=== PATIENT | female | born 1930 | race Caucasian/White ===

== ENCOUNTER 2016-10-23 08:01 | Day surgery (SDC) | payer MEDICARE ==
[~2016-10-23 08:01] MED LIST: Bupivacaine 0.5% 50 ML MDV ONE; Lidocaine 1% with EPINEPHrine 1:100,000 50 ML MDV ONE
[2016-10-23] MEDS ORDERED: Dextrose 5%-Lactated Ringers 1,000 ML IV SCH (08:30)
[2016-10-23] MEDS ORDERED: Clindamycin Phosphate 900 MG in Sodium Chloride 0.9% 100 ML IV ONE (08:30)
[2016-10-23] MEDS ORDERED: Propofol 200 MG/20 ML SDV ONE (09:46)
[2016-10-23] MEDS ORDERED: fentaNYL 100 MCG/2 ML SDV ONE (09:46)
[2016-10-23] MEDS ORDERED: Midazolam 1 MG/ML 2 ML SDV ONE (10:22)
[2016-10-23] MEDS ORDERED: Linezolid 200 MG/100 ML Bag IRR ONE (11:27)
[2016-10-23 13:14] VITALS: BP 157/84
--- NOTE | 2016-10-29 10:21 | OR ---
DATE OF PROCEDURE: 10/23/2016 PREOPERATIVE DIAGNOSES: 1. Dual-chamber cardiac pacemaker, pulse generator at end of life. 2. Nearly eroded cardiac pacemaker pulse generator. OPERATIVE PROCEDURE: 1. Replacement of dual-chamber cardiac pacemaker pulse generator (22556). 2. Relocation of pulse generator pocket to minimize chances of erosion of the pulse generator to the skin (21093). ANESTHESIA: Local plus IV sedation. INDICATION FOR PROCEDURE: This is an 86-year-old presenting with a dual-chamber pacemaker, currently at end of life. The plan is to proceed with placement of pulse generator. On preoperative examination, she was noted to have extremely thin layer of tissue over the superior aspect of the pulse generator. Essentially, at this point, only the skin and dermis and the capsule. This also had some muscle pressure and this would certainly be a pulse generator had some risk for eroding through the skin. The plan is for the replacement of the pulse generator as well as relocation of the pocket into a deeper plane. Potential risks of the procedure were reviewed with the patient as well as the granddaughter who was present, and they wished to proceed. DETAILS OF PROCEDURE: The patient was taken to the operating room and placed in a supine position. IV sedation was administered after which the upper chest and neck areas were prepped and draped. The area over the pulse generator was then anesthetized with 1% lidocaine mixed with Marcaine. An incision continued down through the skin subcutaneous tissue and into the capsule of the pulse generator. The pulse generator was then mobilized upward and detached. The patient had a slow and a walker river rhythm, both leads were tested and found to be satisfactory with the stimulation thresholds as per the implantation record. The pulse generator which was model number [id number] was then placed and adequate pacing and sensing functions were noted. At this point, the incision at the pre-existing capsule was made and this was carried down through the skin and subcutaneous tissue, into a plane behind the pectoralis major fascia using blunt dissection. The new pocket was fashioned into that area and the pulse generator was then placed into that area without difficulty. A Tyrx antibiotic pocket was placed into the pocket as well and the area also irrigated with Zyvox-containing saline solution. The incision was then closed with layers of 3-0 and 4-0 Vicryl stitch deep and a 4-0 Vicryl subcuticular stitch. Dressing was applied. The patient was taken to the recovery room in satisfactory condition. Brody Reynoso MD /[id number]
== END 2016-10-23 13:10 ==
LOC: JP.SDS 08:01
PROVIDERS: ATTEND Surgery
DX: Z45.010 Encounter for checking and testing of cardiac pacemaker pulse generator [battery] (principal); Z45.018 Encounter for adjustment and management of other part of cardiac pacemaker
CPT/HCPCS: 33222; 33228; C1785; J2020; J2250; J2704; J3010; J7030; J7042; S0077

== ENCOUNTER 2017-12-08 10:23 | Observation (INO) | payer MEDICARE ==
[2017-12-08] MEDS ORDERED: Lactated Ringers 1,000 ML IV SCH (10:45)
--- NOTE | 2017-12-08 10:47 | EDM.PDOC ---
ED HPI GENERAL MEDICAL PROBLEM - General Chief Complaint: Neuro Symptoms/Deficits Stated Complaint: MEDICAL VIA [facility] Time Seen by Provider: 12/08/17 10:40 Source of Information: Reports: Patient, EMS, Family, RN Notes Reviewed History Limitations: Reports: Altered Mental Status - History of Present Illness INITIAL COMMENTS - FREE TEXT/NARRATIVE: 87-year-old female brought in by EMS services for unresponsive event. Has a known history of frequent urinary tract infections was reported well at the assisted living center proximally 8:30 this morning, return to her room take a nap midmorning, was found to be unresponsive. Family members are present states she does have a history of self cathetering as well as recurrent urinary tract infections has had sepsis issues in the past with confusion. She has a GCS of 3 so no history is obtained for her she does have advanced directives and is a DNR /DNI. EKG provided by EMS shows multiple PVCs difficult to interpret does have a known history of pacemaker - Related Data Allergies Allergy/AdvReac Type Severity Reaction Status Date / Time TRU Inhibitors Allergy Unknown unknown Verified 10/23/16 08:21 Penicillins Allergy Rash Verified 10/23/16 08:21 esomeprazole AdvReac Diarrhea Verified 10/23/16 08:21 Home Meds: Home Meds Aspirin [Krys Chewable Aspirin] 325 mg PO DAILY 06/17/13 [History] Calcium Carbonate/Vitamin D3 [Calcium 600 + Vit D Tablet] 1 each PO BID [History] Metoprolol Succinate [Toprol XL] 25 mg PO DAILY 06/17/13 [History] PARoxetine [Paxil] 40 mg PO DAILY 06/17/13 [History] traMADol HCl [Tramadol HCl] 50 mg PO TID PRN 03/08/14 [History] Ketoconazole [Nizoral 2% Crm] 1 applic TOP BID 12/23/14 [History] Melatonin 3 mg PO BEDTIME 12/23/14 [History] Omeprazole [Prilosec] 40 mg PO DAILY 12/23/14 [History] Loperamide [Imodium] 2 mg PO DAILY 03/10/16 [History] Meclizine [Antivert] 12.5 mg PO ASDIRECTED PRN 03/10/16 [History] Naproxen Sodium [Aleve] 220 mg PO BID PRN 03/10/16 [History] Ondansetron [Take Home: Ondansetron ODT 4 MG, 2 Tab Pack] 4 mg PO ASDIRECTED PRN 03/16/16 [History] traMADol [Take Home: traMADol 50 MG, 4 Tab Pack] 50 mg PO ASDIRECTED PRN [History] Acetaminophen 325 mg PO ASDIRECTED PRN 10/23/16 [History] Calcium Carbonate [Tums] 200 mg PO Q4H PRN 10/23/16 [History] Glycerin [Laxative Suppository] 1 each RC ASDIRECTED PRN 10/23/16 [History] Hydrocortisone [Hydrocortisone 1% Oint] 1 applic TOP ASDIRECTED PRN 10/23/16 [ History] Magnesium Hydroxide [Milk of Magnesia] 30 ml PO DAILY PRN 10/23/16 [History] Neomycin Mares/Bacitrac Zn/Poly [Medi-First Triple Antibiotic] 1 applic TP ASDIRECTED PRN 10/23/16 [History] guaiFENesin [Robitussin] 10 ml PO Q6H 10/23/16 [History] hydrALAZINE HCl [Hydralazine HCl] 12.5 mg PO DAILY 10/23/16 [History] Past Medical History HEENT History: Reports: Hard of Hearing, Impaired Vision Cardiovascular History: Reports: Afib, Congenital Septal Defect, Heart Failure, Hypertension, Other (See Below) Other Cardiovascular History: pacemaker Gastrointestinal History: Reports: Chronic Constipation, GERD Genitourinary History: Reports: Urinary Incontinence 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: , Spontaneous Musculoskeletal History: Reports: Arthritis, Other (See Below) Other Musculoskeletal History: osteopenia Neurological History: Reports: Headaches, Chronic Psychiatric History: Reports: Depression Hematologic History: Reports: Blood Transfusion(s) Dermatologic History: Reports: Other (See Below) Other Dermatologic History: rash on back - Infectious Disease History Infectious Disease History: Reports: Chicken Pox - Past Surgical History Cardiovascular Surgical History: Reports: Other (See Below) GI Surgical History: Reports: Appendectomy, Cholecystectomy, Colonoscopy, EGD, Nora Fundoplication Female Surgical History: Reports: Hysterectomy, LEEP, Salpingo-Oophorectomy Musculoskeletal Surgical History: Reports: Knee Replacement Social & Family History - Family History Family Medical History: Noncontributory - Tobacco Use Smoking Status *Q: Never Smoker Second Hand Smoke Exposure: No - Caffeine Use Caffeine Use: Reports: Soda - Alcohol Use Days Per Week of Alcohol Use: 0 - Recreational Drug Use Recreational Drug Use: No ED ROS GENERAL - Review of Systems Review Of Systems: Unable To Obtain ED EXAM, GENERAL - Physical Exam Exam: See Below Free Text/Narrative:: General: Elderly female obtunded GCS of 3, HEENT: head is atraumatic normocephalic, eyes pupils equal round reactive to light, sclera clear no conjunctivitis appreciated does have eye fluttering movement. Ears tympanic membranes clear and carranza landmarks and light reflex are present bilaterally canals are clear. Nose no septal deviation, nares are clear, no blood present. Mouth mucosa is dry and pink no erythema or exudate noted in soft palate, tongue is midline uvula is midline, dentures in place. Neck: Supple no thyromegaly no tracheal deviation. Nodes: Cervical nodes subclavicular nodes nontender no palpable lymphadenopathy noted. Lungs: Decreased breath sounds CV: Irregularly irregular rate and rhythm S1 and S2 appreciated grade 2/6 systolic ejection murmur best appreciated at the left sternal border, no rubs or gallops noted. Abdomen: Soft, nontender, no palpable masses or organomegaly appreciated, no distention no guarding bowel sounds are present, . Neuro: GCS of 3 Skin: Warm and dry, intact Extremities: No lower extremity edema appreciated, Course - Vital Signs Last Recorded V/S: Last Vital Signs Temp 97.7 F 12/08/17 10:40 Pulse 71 12/08/17 13:36 Resp 16 12/08/17 13:36 BP 117/65 12/08/17 13:36 Pulse Ox 97 12/08/17 13:36 - Orders/Labs/Meds Orders: Active Orders 24 hr Category Date Time Status Vital Signs [RC] Q1H Care 12/08/17 10:40 Active CULTURE BLOOD [BC] Urgent Lab 12/08/17 10:50 Received CULTURE BLOOD [BC] Urgent Lab 12/08/17 11:00 Received DRUG SCREEN, URINE [URCHEM] Stat Lab 12/08/17 13:22 Ordered UA W/MICROSCOPIC [URIN] Urgent Lab 12/08/17 12:17 Ordered Lactated Ringers [Ringers, Lactated] 1,000 ml Med 12/08/17 10:45 Active IV ASDIRECTED Blood Culture x2 Reflex Set [OM.PC] Urgent Oth 12/08/17 10:40 Ordered Medication Orders Lactated Ringer's (Ringers, Lactated) 1,000 mls @ 500 mls/hr IV ASDIRECTED SELWYN Last Admin: 12/08/17 11:33 Dose: 500 mls/hr Labs: Laboratory Tests 12/08/17 12/08/17 12/08/17 Range/Units 10:50 10:50 10:50 WBC 4.8 (4.5-11.0) K/uL RBC 4.46 (3.30-5.50) M/uL Hgb 12.5 (12.0-15.0) g/dL Hct 39.0 (36.0-48.0) % MCV 87 (80-98) fL MCH 28 (27-31) pg MCHC 32 (32-36) % Plt Count 120 L (150-400) K/uL Neut % (Auto) 65 (36-66) % Lymph % (Auto) 20 L (24-44) % [place] % (Auto) 10 H (2-6) % Eos % (Auto) 3 (2-4) % Baso % (Auto) 1 (0-1) % Sodium 143 (140-148) mmol/L Potassium 3.5 L (3.6-5.2) mmol/L Chloride 104 (100-108) mmol/L Carbon Dioxide 30 (21-32) mmol/L Anion Gap 12.5 (5.0-14.0) mmol/L BUN 19 H (7-18) mg/dL Creatinine 1.3 H (0.6-1.0) mg/dL Est Cr Clr Drug Dosing 23.44 mL/min Estimated GFR (MDRD) 39 L (>60) Glucose 94 (74-106) mg/dL Lactic Acid 1.4 (0.4-2.0) mmol/L Calcium 8.3 L (8.5-10.1) mg/dL Total Bilirubin 1.3 H D (0.2-1.0) mg/dL AST 38 H (15-37) U/L ALT 16 (12-78) U/L Alkaline Phosphatase 84 (46-116) U/L Troponin I (0.000-0.056) ng/mL C-Reactive Protein 1.98 H (0.0-0.3) mg/dL Total Protein 7.2 (6.4-8.2) g/dL Albumin 3.0 L (3.4-5.0) g/dL Globulin 4.2 H (2.3-3.5) g/dL Albumin/Globulin Ratio 0.7 L (1.2-2.2) Urine Color Urine Appearance Urine pH (4.5-8.0) Ur Specific [place] (1.008-1.030) Urine Protein (NEGATIVE) mg/dL Urine Glucose (UA) (NEGATIVE) mg/dL Urine Ketones (NEGATIVE) mg/dL Urine Occult Blood (NEGATIVE) Urine Nitrite (NEGATIVE) Urine Bilirubin (NEGATIVE) Urine Urobilinogen (NORMAL) mg/dL Ur Leukocyte Esterase (NEGATIVE) Urine RBC (0-5) Urine WBC (0-5) Ur Epithelial Cells Amorphous Sediment Urine Bacteria Urine Mucus Urinalysis Comment Urine Opiates Screen (NEGATIVE) Ur Oxycodone Screen (NEGATIVE) Urine Methadone Screen (NEGATIVE) Ur Propoxyphene Screen (NEGATIVE) Ur Barbiturates Screen (NEGATIVE) Ur Tricyclics Screen (NEGATIVE) Ur Phencyclidine Scrn (NEGATIVE) Ur Amphetamine Screen (NEGATIVE) U Methamphetamines Scrn (NEGATIVE) Urine MDMA Screen (NEGATIVE) U Benzodiazepines Scrn (NEGATIVE) U Cocaine Metab Screen (NEGATIVE) U Marijuana (THC) Screen (NEGATIVE) 12/08/17 12/08/17 12/08/17 Range/Units 11:02 12:17 13:22 WBC (4.5-11.0) K/uL RBC (3.30-5.50) M/uL Hgb (12.0-15.0) g/dL Hct (36.0-48.0) % MCV (80-98) fL MCH (27-31) pg MCHC (32-36) % Plt Count (150-400) K/uL Neut % (Auto) (36-66) % Lymph % (Auto) (24-44) % [place] % (Auto) (2-6) % Eos % (Auto) (2-4) % Baso % (Auto) (0-1) % Sodium (140-148) mmol/L Potassium (3.6-5.2) mmol/L Chloride (100-108) mmol/L Carbon Dioxide (21-32) mmol/L Anion Gap (5.0-14.0) mmol/L BUN (7-18) mg/dL Creatinine (0.6-1.0) mg/dL Est Cr Clr Drug Dosing mL/min Estimated GFR (MDRD) (>60) Glucose (74-106) mg/dL Lactic Acid (0.4-2.0) mmol/L Calcium (8.5-10.1) mg/dL Total Bilirubin (0.2-1.0) mg/dL AST (15-37) U/L ALT (12-78) U/L Alkaline Phosphatase (46-116) U/L Troponin I < 0.017 (0.000-0.056) ng/mL C-Reactive Protein (0.0-0.3) mg/dL Total Protein (6.4-8.2) g/dL Albumin (3.4-5.0) g/dL Globulin (2.3-3.5) g/dL Albumin/Globulin Ratio (1.2-2.2) Urine Color Yellow Urine Appearance Slightly cloudy Urine pH 7.0 (4.5-8.0) Ur Specific [place] 1.010 (1.008-1.030) Urine Protein Negative (NEGATIVE) mg/dL Urine Glucose (UA) Normal (NEGATIVE) mg/dL Urine Ketones Negative (NEGATIVE) mg/dL Urine Occult Blood Negative (NEGATIVE) Urine Nitrite Negative (NEGATIVE) Urine Bilirubin Negative (NEGATIVE) Urine Urobilinogen 4 (NORMAL) mg/dL Ur Leukocyte Esterase Negative (NEGATIVE) Urine RBC 0-5 (0-5) Urine WBC 0-5 (0-5) Ur Epithelial Cells Few Amorphous Sediment Not seen Urine Bacteria Many Urine Mucus Not seen Urinalysis Comment Urine Opiates Screen Negative (NEGATIVE) Ur Oxycodone Screen Negative (NEGATIVE) Urine Methadone Screen Negative (NEGATIVE) Ur Propoxyphene Screen Negative (NEGATIVE) Ur Barbiturates Screen Negative (NEGATIVE) Ur Tricyclics Screen Negative (NEGATIVE) Ur Phencyclidine Scrn Negative (NEGATIVE) Ur Amphetamine Screen Negative (NEGATIVE) U Methamphetamines Scrn Negative (NEGATIVE) Urine MDMA Screen Negative (NEGATIVE) U Benzodiazepines Scrn Negative (NEGATIVE) U Cocaine Metab Screen Negative (NEGATIVE) U Marijuana (THC) Screen Negative (NEGATIVE) Meds: Medications Generic Name Dose Route Start Last Admin Trade Name Freq PRN Reason Stop Dose Admin Lactated Ringer's 1,000 mls @ 500 mls/hr 04/18/18 10:45 12/08/17 11:33 Ringers, Lactated IV 500 mls/hr ASDIRECTED SELWYN Administration Discontinued Medications Generic Name Dose Route Start Last Admin Trade Name Tato PRN Reason Stop Dose Admin Ceftriaxone Sodium 2 gm/ 50 mls @ 100 mls/hr 12/08/17 11:36 12/08/17 11:48 Sodium Chloride IV 12/08/17 12:05 100 mls/hr ONETIME ONE Administration Departure - Departure Time of Disposition: 14:58 Disposition: Admitted As Inpatient 67 Condition: Fair Clinical Impression: Unresponsive episode - Discharge Information Referrals: Jeet Jordan MD [Primary Care Provider] - Forms: ED Department Discharge - My Orders Last 24 Hours: My Active Orders 12/08/17 10:40 Vital Signs [RC] Q1H Blood Culture x2 Reflex Set [OM.PC] Urgent 12/08/17 10:45 Lactated Ringers [Ringers, Lactated] 1,000 ml IV ASDIRECTED 12/08/17 10:50 CULTURE BLOOD [BC] Urgent 12/08/17 11:00 CULTURE BLOOD [BC] Urgent 12/08/17 12:17 UA W/MICROSCOPIC [URIN] Urgent 12/08/17 13:22 DRUG SCREEN, URINE [URCHEM] Stat - Assessment/Plan Last 24 Hours: My Active Orders 12/08/17 10:40 Vital Signs [RC] Q1H Blood Culture x2 Reflex Set [OM.PC] Urgent 12/08/17 10:45 Lactated Ringers [Ringers, Lactated] 1,000 ml IV ASDIRECTED 12/08/17 10:50 CULTURE BLOOD [BC] Urgent 12/08/17 11:00 CULTURE BLOOD [BC] Urgent 12/08/17 12:17 UA W/MICROSCOPIC [URIN] Urgent 12/08/17 13:22 DRUG SCREEN, URINE [URCHEM] Stat Plan: Assessment Acuity = acute Site and laterality = brief moment of unconsciousness complicated patient with known history of chronic white matter disease Etiology = unclear etiology Manifestations = none Location of injury = Home Lab values = CBC unremarkable, creatinine elevated at 1.3 consistent chronic renal failure stage G IIIB total bilirubin elevated 1.3 consistent with hyperbilirubinemia C-reactive protein elevated 1.98 unclear significance urinalysis negative urine drug screens negative chest x-ray shows cardiomegaly CT scan of the head shows chronic white matter change otherwise no acute process does have an 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
--- NOTE | 2017-12-08 11:26 | CR ---
Chest 1V Frontal HISTORY: Unresponsive COMPARISON: CT chest 2013. FINDINGS: Prior median sternotomy. Rotated film. Moderate cardiomegaly. There appears to be mild inte rstitial prominence in the right perihilar region which could represent pulmonary edema and/or inflam matory change. Right-sided effusion with right lung base atelectasis or infiltrate. Small left-sided effusion. Impression: 1. Cardiomegaly. I cannot exclude mild congestive change. 2. Right lung base effusion with adjacent atelectasis or infiltrate.
[2017-12-08] MEDS ORDERED: cefTRIAXone 2 GM in Sodium Chloride 0.9% 50 ML IV ONE (11:36)
--- NOTE | 2017-12-08 14:31 | CT ---
Head wo Cont HISTORY: Obtunded COMPARISON: Prior CT scan 03/10/2016. FINDINGS: Extensive atrophy and chronic white matter changes. Old lacunar infarcts in the head of the right caudate lobe measuring 6 to 7 mm. No acute hemorrhage, mass or mass effect. No abnormal extra- axial fluid collections. There is dense opacification of left sphenoid sinus which is new from prior study mild left mastoid and right mastoid air cell disease which also appears to be new from prior st udy. Impression: 1. Extensive atrophy and chronic white matter change. No acute changes in the brain. 2. New left sphenoid sinus disease and bilateral mastoid air cell disease.
--- NOTE | 2017-12-08 16:04 | PCM.HP ---
H&P History of Present Illness - General Date of Service: 12/08/17 Admit Problem/Dx: Admission Diagnosis/Problem Admission Diagnosis/Problem Decreased level of consciousness Source of Information: Patient, Family, Provider, RN Notes Reviewed History Limitations: Reports: Altered Mental Status (Dementia) - History of Present Illness Initial Comments - Free Text/Narative: Ms. Crane is an 87-year-old woman who is admitted through the emergency department observation status for further evaluation and management of an unresponsive episode. Ms. Crane has a known diagnosis of Alzheimer's type dementia and is unable to provide a meaningful history concerning recent symptoms or events. She lives in an assisted living facility, report is that she woke up early this morning to use the bathroom and then went back to bed. Staff went in to get her up for the day and she was found to be unresponsive even to painful stimuli. She was brought into the emergency department by EMS for further evaluation. Vital signs were found to be stable and she had adequate oxygenation. CT scan of the head shows age-related changes but no acute abnormalities. Other than probable sinusitis identified on CT scan there is no other obvious source of infection and no significant metabolic abnormalities. There are no new recent medications and her urine drug screen was found to be negative. After short period of time in the emergency department she awoke and family feels that her current cognitive function seems to be fairly normal for her. There are no focal neurologic deficits and she has had no similar episodes in the past. There is no history of seizure disorder. - Related Data Allergies/Adverse Reactions: Allergies Allergy/AdvReac Type Severity Reaction Status Date / Time TRU Inhibitors Allergy Unknown unknown Verified 10/23/16 08:21 Penicillins Allergy Rash Verified 10/23/16 08:21 esomeprazole AdvReac Diarrhea Verified 10/23/16 08:21 Home Medications: Home Meds Aspirin [Krys Chewable Aspirin] 325 mg PO DAILY 06/17/13 [History] Calcium Carbonate/Vitamin D3 [Calcium 600 + Vit D Tablet] 1 each PO BID [History] Metoprolol Succinate [Toprol XL] 25 mg PO DAILY 06/17/13 [History] PARoxetine [Paxil] 40 mg PO DAILY 06/17/13 [History] traMADol HCl [Tramadol HCl] 50 mg PO TID PRN 03/08/14 [History] Ketoconazole [Nizoral 2% Crm] 1 applic TOP BID 12/23/14 [History] Melatonin 3 mg PO BEDTIME 12/23/14 [History] Omeprazole [Prilosec] 40 mg PO DAILY 12/23/14 [History] Loperamide [Imodium] 2 mg PO DAILY 03/10/16 [History] Meclizine [Antivert] 12.5 mg PO ASDIRECTED PRN 03/10/16 [History] Naproxen Sodium [Aleve] 220 mg PO BID PRN 03/10/16 [History] Ondansetron [Take Home: Ondansetron ODT 4 MG, 2 Tab Pack] 4 mg PO ASDIRECTED PRN 03/16/16 [History] traMADol [Take Home: traMADol 50 MG, 4 Tab Pack] 50 mg PO ASDIRECTED PRN [History] Acetaminophen 325 mg PO ASDIRECTED PRN 10/23/16 [History] Calcium Carbonate [Tums] 200 mg PO Q4H PRN 10/23/16 [History] Glycerin [Laxative Suppository] 1 each RC ASDIRECTED PRN 10/23/16 [History] Hydrocortisone [Hydrocortisone 1% Oint] 1 applic TOP ASDIRECTED PRN 10/23/16 [ History] Magnesium Hydroxide [Milk of Magnesia] 30 ml PO DAILY PRN 10/23/16 [History] Neomycin Mares/Bacitrac Zn/Poly [Medi-First Triple Antibiotic] 1 applic TP ASDIRECTED PRN 10/23/16 [History] guaiFENesin [Robitussin] 10 ml PO Q6H 10/23/16 [History] hydrALAZINE HCl [Hydralazine HCl] 12.5 mg PO DAILY 10/23/16 [History] Past Medical History HEENT History: Reports: Hard of Hearing, Impaired Vision Cardiovascular History: Reports: Afib, Congenital Septal Defect, Heart Failure, Hypertension, Other (See Below) Other Cardiovascular History: pacemaker Gastrointestinal History: Reports: Chronic Constipation, GERD Genitourinary History: Reports: Urinary Incontinence [employer] History: Reports: , Spontaneous Musculoskeletal History: Reports: Arthritis, Other (See Below) Other Musculoskeletal History: osteopenia Neurological History: Reports: Headaches, Chronic Psychiatric History: Reports: Depression Hematologic History: Reports: Blood Transfusion(s) Dermatologic History: Reports: Other (See Below) Other Dermatologic History: rash on back - Infectious Disease History Infectious Disease History: Reports: Chicken Pox - Past Surgical History Cardiovascular Surgical History: Reports: Other (See Below) GI Surgical History: Reports: Appendectomy, Cholecystectomy, Colonoscopy, EGD, Nora Fundoplication Female Surgical History: Reports: Hysterectomy, LEEP, Salpingo-Oophorectomy Musculoskeletal Surgical History: Reports: Knee Replacement Social & Family History - Family History Family Medical History: Noncontributory - Tobacco Use Smoking Status *Q: Never Smoker Second Hand Smoke Exposure: No - Caffeine Use Caffeine Use: Reports: Soda - Alcohol Use Days Per Week of Alcohol Use: 0 - Recreational Drug Use Recreational Drug Use: No H&P Review of Systems - Review of Systems: Review Of Systems: Unable To Obtain General: Reports: ROS unobtainable (Secondary to dementia) Exam - Exam Exam: See Below - Vital Signs Vital Signs: Last Vital Signs Temp 97.7 F 12/08/17 10:40 Pulse 69 12/08/17 15:36 Resp 14 12/08/17 15:36 BP 102/68 12/08/17 15:36 Pulse Ox 95 12/08/17 15:36 Weight: 150 lb - Exam Quality Assessment: Supplemental Oxygen, DVT Prophylaxis General: Alert, Cooperative HEENT: Conjunctiva Clear, Hearing Intact, Mucosa Moist & Mamou, Normal Nasal Septum, Posterior Pharynx Clear, Pupils Equal Neck: Supple, Trachea Midline, +2 Carotid Pulse wo Bruit Lungs: Clear to Auscultation, Normal Respiratory Effort, Decreased Breath Sounds Cardiovascular: Regular Rate, Regular Rhythm, Normal S1, Normal S2. No: Systolic Murmur, Diastolic Murmur GI/Abdominal Exam: Soft, Non-Tender, No Organomegaly, No Distention Back Exam: Normal Inspection, Full Range of Motion Extremities: Normal Range of Motion, Non-Tender, No Pedal Edema Skin: Warm, Dry, Intact Neurological: Cranial Nerves Intact, Strength Equal Bilateral, Normal Speech, Normal Tone, Sensation Intact Neuro Extensive - Mental Status: Alert, Normal Mood/Affect, Disorientation to Place, Disorientation to Time, Memory Loss-Remote Events, Memory Loss-Recent Events. No: Normal Cognition, Memory Intact - Patient Data Lab Results Last 24 hrs: Laboratory Results - last 24 hr 12/08/17 12/08/17 12/08/17 Range/Units 10:50 10:50 10:50 WBC 4.8 (4.5-11.0) K/uL RBC 4.46 (3.30-5.50) M/uL Hgb 12.5 (12.0-15.0) g/dL Hct 39.0 (36.0-48.0) % MCV 87 (80-98) fL MCH 28 (27-31) pg MCHC 32 (32-36) % Plt Count 120 L (150-400) K/uL Neut % (Auto) 65 (36-66) % Lymph % (Auto) 20 L (24-44) % Sherman % (Auto) 10 H (2-6) % Eos % (Auto) 3 (2-4) % Baso % (Auto) 1 (0-1) % Sodium 143 (140-148) mmol/L Potassium 3.5 L (3.6-5.2) mmol/L Chloride 104 (100-108) mmol/L Carbon Dioxide 30 (21-32) mmol/L Anion Gap 12.5 (5.0-14.0) mmol/L BUN 19 H (7-18) mg/dL Creatinine 1.3 H (0.6-1.0) mg/dL Est Cr Clr Drug Dosing 23.44 mL/min Estimated GFR (MDRD) 39 L (>60) Glucose 94 (74-106) mg/dL Lactic Acid 1.4 (0.4-2.0) mmol/L Calcium 8.3 L (8.5-10.1) mg/dL Total Bilirubin 1.3 H D (0.2-1.0) mg/dL AST 38 H (15-37) U/L ALT 16 (12-78) U/L Alkaline Phosphatase 84 (46-116) U/L Troponin I (0.000-0.056) ng/mL C-Reactive Protein 1.98 H (0.0-0.3) mg/dL Total Protein 7.2 (6.4-8.2) g/dL Albumin 3.0 L (3.4-5.0) g/dL Globulin 4.2 H (2.3-3.5) g/dL Albumin/Globulin Ratio 0.7 L (1.2-2.2) Urine Color Urine Appearance Urine pH (4.5-8.0) Ur Specific [place] (1.008-1.030) Urine Protein (NEGATIVE) mg/dL Urine Glucose (UA) (NEGATIVE) mg/dL Urine Ketones (NEGATIVE) mg/dL Urine Occult Blood (NEGATIVE) Urine Nitrite (NEGATIVE) Urine Bilirubin (NEGATIVE) Urine Urobilinogen (NORMAL) mg/dL Ur Leukocyte Esterase (NEGATIVE) Urine RBC (0-5) Urine WBC (0-5) Ur Epithelial Cells Amorphous Sediment Urine Bacteria Urine Mucus Urinalysis Comment Urine Opiates Screen (NEGATIVE) Ur Oxycodone Screen (NEGATIVE) Urine Methadone Screen (NEGATIVE) Ur Propoxyphene Screen (NEGATIVE) Ur Barbiturates Screen (NEGATIVE) Ur Tricyclics Screen (NEGATIVE) Ur Phencyclidine Scrn (NEGATIVE) Ur Amphetamine Screen (NEGATIVE) U Methamphetamines Scrn (NEGATIVE) Urine MDMA Screen (NEGATIVE) U Benzodiazepines Scrn (NEGATIVE) U Cocaine Metab Screen (NEGATIVE) U Marijuana (THC) Screen (NEGATIVE) 12/08/17 12/08/17 12/08/17 Range/Units 11:02 12:17 13:22 WBC (4.5-11.0) K/uL RBC (3.30-5.50) M/uL Hgb (12.0-15.0) g/dL Hct (36.0-48.0) % MCV (80-98) fL MCH (27-31) pg MCHC (32-36) % Plt Count (150-400) K/uL Neut % (Auto) (36-66) % Lymph % (Auto) (24-44) % Sherman % (Auto) (2-6) % Eos % (Auto) (2-4) % Baso % (Auto) (0-1) % Sodium (140-148) mmol/L Potassium (3.6-5.2) mmol/L Chloride (100-108) mmol/L Carbon Dioxide (21-32) mmol/L Anion Gap (5.0-14.0) mmol/L BUN (7-18) mg/dL Creatinine (0.6-1.0) mg/dL Est Cr Clr Drug Dosing mL/min Estimated GFR (MDRD) (>60) Glucose (74-106) mg/dL Lactic Acid (0.4-2.0) mmol/L Calcium (8.5-10.1) mg/dL Total Bilirubin (0.2-1.0) mg/dL AST (15-37) U/L ALT (12-78) U/L Alkaline Phosphatase (46-116) U/L Troponin I < 0.017 (0.000-0.056) ng/mL C-Reactive Protein (0.0-0.3) mg/dL Total Protein (6.4-8.2) g/dL Albumin (3.4-5.0) g/dL Globulin (2.3-3.5) g/dL Albumin/Globulin Ratio (1.2-2.2) Urine Color Yellow Urine Appearance Slightly cloudy Urine pH 7.0 (4.5-8.0) Ur Specific [place] 1.010 (1.008-1.030) Urine Protein Negative (NEGATIVE) mg/dL Urine Glucose (UA) Normal (NEGATIVE) mg/dL Urine Ketones Negative (NEGATIVE) mg/dL Urine Occult Blood Negative (NEGATIVE) Urine Nitrite Negative (NEGATIVE) Urine Bilirubin Negative (NEGATIVE) Urine Urobilinogen 4 (NORMAL) mg/dL Ur Leukocyte Esterase Negative (NEGATIVE) Urine RBC 0-5 (0-5) Urine WBC 0-5 (0-5) Ur Epithelial Cells Few Amorphous Sediment Not seen Urine Bacteria Many Urine Mucus Not seen Urinalysis Comment Urine Opiates Screen Negative (NEGATIVE) Ur Oxycodone Screen Negative (NEGATIVE) Urine Methadone Screen Negative (NEGATIVE) Ur Propoxyphene Screen Negative (NEGATIVE) Ur Barbiturates Screen Negative (NEGATIVE) Ur Tricyclics Screen Negative (NEGATIVE) Ur Phencyclidine Scrn Negative (NEGATIVE) Ur Amphetamine Screen Negative (NEGATIVE) U Methamphetamines Scrn Negative (NEGATIVE) Urine MDMA Screen Negative (NEGATIVE) U Benzodiazepines Scrn Negative (NEGATIVE) U Cocaine Metab Screen Negative (NEGATIVE) U Marijuana (THC) Screen Negative (NEGATIVE) Result Diagrams: 12/08/17 10:50 12/08/17 10:50 *Q Meaningful Use (ADM) - VTE Risk Assess *Q Each Risk Factor Represents 1 Point: Obesity ( BMI > 25 kg/m2), Abnormal Pulmonary Function (COPD) Total Score 1 Point Risk Factors: 2 Each Risk Factor Represents 2 Points: None Total Score 2 Point Risk Factors: 0 Each Risk Factor Represents 3 Points: Age 75 Years or Greater Total Score 3 Point Risk Factors: 3 Each Risk Factor Represents 5 Points: None Total Score 5 Point Risk Factors: 0 Venous Thromboembolism Risk Factor Score *Q: 5 Problem List Initiated/Reviewed/Updated: Yes Orders Last 24hrs: Active Orders 24 hr Category Date Time Status Patient Status Manage Transfer [TRANSFER] Routine ADT 12/08/17 15:10 Active Vital Signs [RC] Q1H Care 12/08/17 10:40 Active CULTURE BLOOD [BC] Urgent Lab 12/08/17 10:50 Received CULTURE BLOOD [BC] Urgent Lab 12/08/17 11:00 Received DRUG SCREEN, URINE [URCHEM] Stat Lab 12/08/17 13:22 Ordered UA W/MICROSCOPIC [URIN] Urgent Lab 12/08/17 12:17 Ordered Lactated Ringers [Ringers, Lactated] 1,000 ml Med 12/08/17 10:45 Active IV ASDIRECTED Blood Culture x2 Reflex Set [OM.PC] Urgent Oth 12/08/17 10:40 Ordered Resuscitation Status Routine Resus Stat 12/08/17 15:13 Ordered Medication Orders Lactated Ringer's (Ringers, Lactated) 1,000 mls @ 500 mls/hr IV ASDIRECTED SELWYN Last Admin: 12/08/17 11:33 Dose: 500 mls/hr Assessment/Plan Comment:: ASSESSMENT AND PLAN UNRESPONSIVE EPISODE-after evaluation, specific etiology not apparent. No obvious evidence of underlying significant infection, metabolic abnormality, drug effect, or neurologic event. She will be admitted to observation status overnight -Cardiac monitoring - neuro checks every 4 hours SINUSITIS-identified on CT scan - clindamycin 300 mg every 6 hours -probiotic CHRONIC KIDNEY DISEASE STAGE III -monitor urine output and renal function PALLIATIVE CARE-patient is DNR/DNI, according to family she does not want aggressive interventions or evaluation MAINTENANCE ISSUES -DVT prophylaxis; Lovenox 40 mg subcutaneous daily -GI prophylaxis; not indicated -Mitchell catheter; not indicated -Nutrition;2 g sodium diet -Nicotine dependence; not required CODE STATUS-DNR/DNI ADMISSION STATUS-this patient will be admitted to observation status, expect no more than a one night hospital stay for evaluation and management of problems as outlined above. DISPOSITION-anticipate discharge to home after the hospital stay. PRIMARY CARE PROVIDER- Dr. Jordan
[2017-12-08] MEDS ORDERED: Polyethylene Glycol 3350 Powder 17 GM Packet PO PRN (16:22)
[2017-12-08] MEDS ORDERED: Ondansetron 4 MG/2 ML SDV IV PRN (16:22)
[2017-12-08] MEDS ORDERED: Acetaminophen 325 MG Tab PO PRN (16:22)
[2017-12-08] MEDS ORDERED: Magnesium Hydroxide 400 MG/5 ML Susp 30 ML Cup PO PRN (16:22)
[2017-12-08] MEDS ORDERED: Sodium Chloride 0.9% 10 ML Syringe FLUSH PRN (16:22)
[2017-12-08] MEDS ORDERED: Potassium Chloride 20 MEQ Tab.ER PO ONE ×2 (17:00→21:00)
[2017-12-08] MEDS ORDERED: Enoxaparin 40 MG/0.4 ML Syringe SUBCUT SCH (18:00)
[2017-12-08] MEDS ORDERED: Melatonin 3 MG Tab PO SCH (21:00)
[2017-12-09] MEDS ORDERED: Pantoprazole 40 MG Tab.CR PO SCH (07:30)
[2017-12-09] MEDS ORDERED: Aspirin 325 MG Tab.EC PO SCH (09:00)
[2017-12-09] MEDS ORDERED: Metoprolol Succinate 25 MG Tab.ER PO SCH (09:00)
[2017-12-09] MEDS ORDERED: PARoxetine 20 MG Tab PO SCH (09:00)
[2017-12-09] MEDS ORDERED: hydrALAZINE 25 MG Tab PO SCH (09:00)
--- NOTE | 2017-12-09 11:12 | PCM.DCSUM1 ---
Discharge Summary - Hospital Course Brief History: Ms. Crane is an 87-year-old woman who was admitted to observation status through the emergency department following an episode of unresponsiveness. - Discharge Data Discharge Date: 12/09/17 Discharge Disposition: Home, Self-Care 01 Condition: Fair - Discharge Diagnosis/Problem(s) (1) Unresponsive state SNOMED Code(s): 086119091 ICD Code: R41.89 - OTH SYMPTOMS AND SIGNS W COGNITIVE FUNCTIONS AND AWARENESS Status: Acute Current Visit: Yes (2) Chronic kidney disease (CKD), stage II (mild) SNOMED Code(s): 015654758 ICD Code: N18.2 - CHRONIC KIDNEY DISEASE, STAGE 2 (MILD) Status: Chronic Current Visit: No (3) Sinusitis SNOMED Code(s): 31656464 ICD Code: J32.9 - CHRONIC SINUSITIS, UNSPECIFIED Status: Acute Current Visit: Yes - Patient Summary/Data Hospital Course: Ms. Crane is an 87-year-old woman who was admitted through the emergency department observation status for further evaluation and management of an unresponsive episode. Ms. Crane has a known diagnosis of Alzheimer's type dementia and is unable to provide a meaningful history concerning recent symptoms or events. She lives in an assisted living facility, report is that she woke up early on the morning of admission to use the bathroom and then went back to bed. Staff went in to get her up for the day and she was found to be unresponsive even to painful stimuli. She was brought into the emergency department by EMS for further evaluation. Vital signs were found to be stable and she had adequate oxygenation. CT scan of the head shows age-related changes but no acute abnormalities. Other than probable sinusitis identified on CT scan there is no other obvious source of infection and no significant metabolic abnormalities. There are no new recent medications and her urine drug screen was found to be negative. After short period of time in the emergency department she awoke and family feels that her current cognitive function seems to be fairly normal for her. There are no focal neurologic deficits and she has had no similar episodes in the past. There is no history of seizure disorder. She was started on oral antibiotic therapy for sinusitis and admitted to the hospital on observation status. She remained stable throughout her hospitalization with no significant cardiac dysrhythmias or recurrent episodes of unresponsiveness. She was feeling well on the morning of discharge. Activity will be as tolerated and she will resume her usual diet. She will be discharged home on antibiotic therapy with clindamycin for 2 weeks for management of sinusitis and probiotic therapy for one month. Follow-up appointment will be scheduled with primary care provider within one week. - Patient Instructions Diet: Usual Diet as Tolerated Activity: As Tolerated Other/Special Instructions: Please schedule follow-up appointment with primary care provider within one week. - Discharge Plan Prescriptions/Med Rec: Clindamycin HCl 300 mg PO QID #56 capsule Lactobacillus Acidophilus [Probiotic Acidophilus] 1 each PO BID #60 tablet Home Medications: Home Meds Aspirin [Krys Chewable Aspirin] 325 mg PO DAILY 06/17/13 [History] Calcium Carbonate/Vitamin D3 [Calcium 600 + Vit D Tablet] 1 each PO BID [History] Metoprolol Succinate [Toprol XL] 50 mg PO DAILY 06/17/13 [History] PARoxetine [Paxil] 40 mg PO DAILY 06/17/13 [History] traMADol HCl [Tramadol HCl] 50 mg PO TID PRN 03/08/14 [History] Ketoconazole [Nizoral 2% Crm] 1 applic TOP BID PRN 12/23/14 [History] Melatonin 3 mg PO BEDTIME 12/23/14 [History] Omeprazole [Prilosec] 40 mg PO BID 12/23/14 [History] Loperamide [Imodium] 2 mg PO DAILY PRN 03/10/16 [History] Meclizine [Antivert] 12.5 mg PO ASDIRECTED PRN 03/10/16 [History] Naproxen Sodium [Aleve] 220 mg PO BID PRN 03/10/16 [History] Ondansetron [Take Home: Ondansetron ODT 4 MG, 2 Tab Pack] 4 mg PO ASDIRECTED PRN 03/16/16 [History] Acetaminophen 325 mg PO ASDIRECTED PRN 10/23/16 [History] Calcium Carbonate [Tums] 200 mg PO Q4H PRN 10/23/16 [History] Glycerin [Laxative Suppository] 1 each RC ASDIRECTED PRN 10/23/16 [History] Hydrocortisone [Hydrocortisone 1% Oint] 1 applic TOP ASDIRECTED PRN 10/23/16 [ History] Magnesium Hydroxide [Milk of Magnesia] 30 ml PO DAILY PRN 10/23/16 [History] Neomycin Mares/Bacitrac Zn/Poly [Medi-First Triple Antibiotic] 1 applic TP ASDIRECTED PRN 10/23/16 [History] hydrALAZINE HCl [Hydralazine HCl] 12.5 mg PO BID 10/23/16 [History] Clindamycin HCl 300 mg PO QID #56 capsule 12/09/17 [Rx] Lactobacillus Acidophilus [Probiotic Acidophilus] 1 each PO BID #60 tablet 12/09 [Rx] Referrals: Jeet Jordan MD [Primary Care Provider] - - Discharge Summary/Plan Comment DC Time >30 min.: No - Patient Data Vitals - Most Recent: Last Vital Signs Temp 99.4 F 12/09/17 07:36 Pulse 73 12/09/17 08:35 Resp 20 12/09/17 07:36 BP 122/66 12/09/17 08:35 Pulse Ox 94 L 12/09/17 07:36 Weight - Most Recent: 161 lb 1.6 oz I&O - Last 24 hours: Intake & Output 12/08/17 12/09/17 12/09/17 22:59 06:59 14:59 Intake Total 480 240 240 Balance 480 240 240 Lab Results - Last 24 hrs: Laboratory Results - last 24 hr 12/08/17 12/08/17 12/08/17 Range/Units 10:50 10:50 11:02 WBC (4.5-11.0) K/uL RBC (3.30-5.50) M/uL Hgb (12.0-15.0) g/dL Hct (36.0-48.0) % MCV (80-98) fL MCH (27-31) pg MCHC (32-36) % Plt Count (150-400) K/uL Neut % (Auto) (36-66) % Lymph % (Auto) (24-44) % [place] % (Auto) (2-6) % Eos % (Auto) (2-4) % Baso % (Auto) (0-1) % Sodium 143 (140-148) mmol/L Potassium 3.5 L (3.6-5.2) mmol/L Chloride 104 (100-108) mmol/L Carbon Dioxide 30 (21-32) mmol/L Anion Gap 12.5 (5.0-14.0) mmol/L BUN 19 H (7-18) mg/dL Creatinine 1.3 H (0.6-1.0) mg/dL Est Cr Clr Drug Dosing 23.44 mL/min Estimated GFR (MDRD) 39 L (>60) Glucose 94 (74-106) mg/dL Lactic Acid 1.4 (0.4-2.0) mmol/L Calcium 8.3 L (8.5-10.1) mg/dL Magnesium (1.8-2.4) mg/dL Total Bilirubin 1.3 H D (0.2-1.0) mg/dL AST 38 H (15-37) U/L ALT 16 (12-78) U/L Alkaline Phosphatase 84 (46-116) U/L Troponin I < 0.017 (0.000-0.056) ng/mL C-Reactive Protein 1.98 H (0.0-0.3) mg/dL Total Protein 7.2 (6.4-8.2) g/dL Albumin 3.0 L (3.4-5.0) g/dL Globulin 4.2 H (2.3-3.5) g/dL Albumin/Globulin Ratio 0.7 L (1.2-2.2) Urine Color Urine Appearance Urine pH (4.5-8.0) Ur Specific [place]enn[place] (1.008-1.030) Urine Protein (NEGATIVE) mg/dL Urine Glucose (UA) (NEGATIVE) mg/dL Urine Ketones (NEGATIVE) mg/dL Urine Occult Blood (NEGATIVE) Urine Nitrite (NEGATIVE) Urine Bilirubin (NEGATIVE) Urine Urobilinogen (NORMAL) mg/dL Ur Leukocyte Esterase (NEGATIVE) Urine RBC (0-5) Urine WBC (0-5) Ur Epithelial Cells Amorphous Sediment Urine Bacteria Urine Mucus Urinalysis Comment Urine Opiates Screen (NEGATIVE) Ur Oxycodone Screen (NEGATIVE) Urine Methadone Screen (NEGATIVE) Ur Propoxyphene Screen (NEGATIVE) Ur Barbiturates Screen (NEGATIVE) Ur Tricyclics Screen (NEGATIVE) Ur Phencyclidine Scrn (NEGATIVE) Ur Amphetamine Screen (NEGATIVE) U Methamphetamines Scrn (NEGATIVE) Urine MDMA Screen (NEGATIVE) U Benzodiazepines Scrn (NEGATIVE) U Cocaine Metab Screen (NEGATIVE) U Marijuana (THC) Screen (NEGATIVE) 12/08/17 12/08/1718 Range/Units 12:17 13:22 04:45 WBC 5.4 (4.5-11.0) K/uL RBC 4.37 (3.30-5.50) M/uL Hgb 11.9 L (12.0-15.0) g/dL Hct 38.2 (36.0-48.0) % MCV 87 (80-98) fL MCH 27 (27-31) pg MCHC 31 L (32-36) % Plt Count 118 L (150-400) K/uL Neut % (Auto) 66 (36-66) % Lymph % (Auto) 16 L (24-44) % [place] % (Auto) 13 H (2-6) % Eos % (Auto) 4 (2-4) % Baso % (Auto) 1 (0-1) % Sodium (140-148) mmol/L Potassium (3.6-5.2) mmol/L Chloride (100-108) mmol/L Carbon Dioxide (21-32) mmol/L Anion Gap (5.0-14.0) mmol/L BUN (7-18) mg/dL Creatinine (0.6-1.0) mg/dL Est Cr Clr Drug Dosing mL/min Estimated GFR (MDRD) (>60) Glucose (74-106) mg/dL Lactic Acid (0.4-2.0) mmol/L Calcium (8.5-10.1) mg/dL Magnesium (1.8-2.4) mg/dL Total Bilirubin (0.2-1.0) mg/dL AST (15-37) U/L ALT (12-78) U/L Alkaline Phosphatase (46-116) U/L Troponin I (0.000-0.056) ng/mL C-Reactive Protein (0.0-0.3) mg/dL Total Protein (6.4-8.2) g/dL Albumin (3.4-5.0) g/dL Globulin (2.3-3.5) g/dL Albumin/Globulin Ratio (1.2-2.2) Urine Color Yellow Urine Appearance Slightly cloudy Urine pH 7.0 (4.5-8.0) Ur Specific [place]enn[place] 1.010 (1.008-1.030) Urine Protein Negative (NEGATIVE) mg/dL Urine Glucose (UA) Normal (NEGATIVE) mg/dL Urine Ketones Negative (NEGATIVE) mg/dL Urine Occult Blood Negative (NEGATIVE) Urine Nitrite Negative (NEGATIVE) Urine Bilirubin Negative (NEGATIVE) Urine Urobilinogen 4 (NORMAL) mg/dL Ur Leukocyte Esterase Negative (NEGATIVE) Urine RBC 0-5 (0-5) Urine WBC 0-5 (0-5) Ur Epithelial Cells Few Amorphous Sediment Not seen Urine Bacteria Many Urine Mucus Not seen Urinalysis Comment Urine Opiates Screen Negative (NEGATIVE) Ur Oxycodone Screen Negative (NEGATIVE) Urine Methadone Screen Negative (NEGATIVE) Ur Propoxyphene Screen Negative (NEGATIVE) Ur Barbiturates Screen Negative (NEGATIVE) Ur Tricyclics Screen Negative (NEGATIVE) Ur Phencyclidine Scrn Negative (NEGATIVE) Ur Amphetamine Screen Negative (NEGATIVE) U Methamphetamines Scrn Negative (NEGATIVE) Urine MDMA Screen Negative (NEGATIVE) U Benzodiazepines Scrn Negative (NEGATIVE) U Cocaine Metab Screen Negative (NEGATIVE) U Marijuana (THC) Screen Negative (NEGATIVE) 12/09/17 Range/Units 04:45 WBC (4.5-11.0) K/uL RBC (3.30-5.50) M/uL Hgb (12.0-15.0) g/dL Hct (36.0-48.0) % MCV (80-98) fL MCH (27-31) pg MCHC (32-36) % Plt Count (150-400) K/uL Neut % (Auto) (36-66) % Lymph % (Auto) (24-44) % [place] % (Auto) (2-6) % Eos % (Auto) (2-4) % Baso % (Auto) (0-1) % Sodium 143 (140-148) mmol/L Potassium 4.4 (3.6-5.2) mmol/L Chloride 107 (100-108) mmol/L Carbon Dioxide 29 (21-32) mmol/L Anion Gap 7.5 (5.0-14.0) mmol/L BUN 22 H (7-18) mg/dL Creatinine 1.4 H (0.6-1.0) mg/dL Est Cr Clr Drug Dosing 20.72 mL/min Estimated GFR (MDRD) 36 L (>60) Glucose 94 (74-106) mg/dL Lactic Acid (0.4-2.0) mmol/L Calcium 8.3 L (8.5-10.1) mg/dL Magnesium 2.0 (1.8-2.4) mg/dL Total Bilirubin (0.2-1.0) mg/dL AST (15-37) U/L ALT (12-78) U/L Alkaline Phosphatase (46-116) U/L Troponin I (0.000-0.056) ng/mL C-Reactive Protein (0.0-0.3) mg/dL Total Protein (6.4-8.2) g/dL Albumin (3.4-5.0) g/dL Globulin (2.3-3.5) g/dL Albumin/Globulin Ratio (1.2-2.2) Urine Color Urine Appearance Urine pH (4.5-8.0) Ur Specific [place]enn[place] (1.008-1.030) Urine Protein (NEGATIVE) mg/dL Urine Glucose (UA) (NEGATIVE) mg/dL Urine Ketones (NEGATIVE) mg/dL Urine Occult Blood (NEGATIVE) Urine Nitrite (NEGATIVE) Urine Bilirubin (NEGATIVE) Urine Urobilinogen (NORMAL) mg/dL Ur Leukocyte Esterase (NEGATIVE) Urine RBC (0-5) Urine WBC (0-5) Ur Epithelial Cells Amorphous Sediment Urine Bacteria Urine Mucus Urinalysis Comment Urine Opiates Screen (NEGATIVE) Ur Oxycodone Screen (NEGATIVE) Urine Methadone Screen (NEGATIVE) Ur Propoxyphene Screen (NEGATIVE) Ur Barbiturates Screen (NEGATIVE) Ur Tricyclics Screen (NEGATIVE) Ur Phencyclidine Scrn (NEGATIVE) Ur Amphetamine Screen (NEGATIVE) U Methamphetamines Scrn (NEGATIVE) Urine MDMA Screen (NEGATIVE) U Benzodiazepines Scrn (NEGATIVE) U Cocaine Metab Screen (NEGATIVE) U Marijuana (THC) Screen (NEGATIVE) GINA Results - Last 24 hrs: Microbiology 12/08/17 11:00 Aerobic Blood Culture - Preliminary Blood - Arm, Right NO GROWTH AFTER 1 DAY Anaerobic Blood Culture - Preliminary NO GROWTH AFTER 1 DAY 12/08/17 10:50 Aerobic Blood Culture - Preliminary Blood - Venous NO GROWTH AFTER 1 DAY Anaerobic Blood Culture - Preliminary NO GROWTH AFTER 1 DAY Med Orders - Current: Current Medications Acetaminophen (Tylenol) 650 mg PO Q4H PRN PRN Reason: Pain (Mild 1-3)/fever Aspirin (Ecotrin) 325 mg PO DAILY [facility] Last Admin: 12/09/17 08:33 Dose: 325 mg Enoxaparin Sodium (Lovenox) 30 mg SUBCUT Q24H [facility] Hydralazine HCl (Apresoline) 12.5 mg PO DAILY [facility] Last Admin: 12/09/17 08:35 Dose: 12.5 mg Magnesium Hydroxide (Milk Of Magnesia) 30 ml PO Q12H PRN PRN Reason: Constipation Melatonin (Melatonin) 3 mg PO BEDTIME [facility] Last Admin: 12/08/17 22:47 Dose: 3 mg Metoprolol Succinate (Toprol Xl) 25 mg PO DAILY [facility] Last Admin: 12/09/17 08:35 Dose: 25 mg Ondansetron HCl (Zofran) 4 mg IV Q4H PRN PRN Reason: Nausea/Vomiting Pantoprazole Sodium (Protonix) 40 mg PO ACBREAKFAST [facility] Last Admin: 12/09/17 08:32 Dose: 40 mg Paroxetine HCl (Paxil) 40 mg PO DAILY [facility] Last Admin: 12/09/17 08:33 Dose: 40 mg Polyethylene Glycol (Miralax) 17 gm PO DAILY PRN PRN Reason: Constipation Senna/Docusate Sodium (Senna Plus) 1 tab PO BID PRN PRN Reason: Constipation Sodium Chloride (Saline Flush) 10 ml FLUSH ASDIRECTED PRN PRN Reason: Keep Vein Open Discontinued Medications Enoxaparin Sodium (Lovenox) 40 mg SUBCUT Q24H [facility] Last Admin: 12/08/17 18:00 Dose: 40 mg Lactated Ringer's (Ringers, Lactated) 1,000 mls @ 500 mls/hr IV ASDIRECTED [facility] Last Admin: 12/08/17 11:33 Dose: 500 mls/hr Ceftriaxone Sodium 2 gm/ (Sodium Chloride) 50 mls @ 100 mls/hr IV ONETIME ONE Stop: 12/08/17 12:05 Last Admin: 12/08/17 11:48 Dose: 100 mls/hr Potassium Chloride (Klor-Con M20) 40 meq PO ONETIME ONE Stop: 12/08/17 17:01 Last Admin: 12/08/17 17:59 Dose: 40 meq Potassium Chloride (Klor-Con M20) 40 meq PO ONETIME ONE Stop: 12/08/17 21:01 Last Admin: 12/08/17 22:47 Dose: 40 meq - Exam General: Reports: Alert, Cooperative, No Acute Distress Lungs: Reports: Clear to Auscultation, Normal Respiratory Effort Cardiovascular: Reports: Regular Rate, Regular Rhythm, Murmurs GI/Abdominal Exam: Soft, Non-Tender, No Organomegaly, No Distention
[2017-12-09 12:36] VITALS: BP 124/65
[2017-12-09] MEDS ORDERED: Enoxaparin 30 MG/0.3 ML Syringe SUBCUT SCH (18:00)
== END 2017-12-09 12:45 | disposition home or self-care (01) ==
LOC: JP.ED 10:23 → JP.MS 15:10
PROVIDERS: ADMIT Hospitalist; ATTEND Hospitalist
DX: R41.89 Other symptoms and signs involving cognitive functions and awareness (principal); I13.0 Hypertensive heart and chronic kidney disease with heart failure and stage 1 through stage 4 chronic kidney disease, or unspecified chronic kidney disease; I50.9 Heart failure, unspecified; N18.2 Chronic kidney disease, stage 2 (mild); J32.9 Chronic sinusitis, unspecified; G30.9 Alzheimer's disease, unspecified; F02.80 Dementia in other diseases classified elsewhere, unspecified severity, without behavioral disturbance, psychotic disturbance, mood disturbance, and anxiety; I48.91 Unspecified atrial fibrillation; K21.9 Gastro-esophageal reflux disease without esophagitis; K59.09 Other constipation; M19.90 Unspecified osteoarthritis, unspecified site; Z66 Do not resuscitate; Z51.5 Encounter for palliative care; Z79.82 Long term (current) use of aspirin; Z79.899 Other long term (current) drug therapy; Z88.8 Allergy status to other drugs, medicaments and biological substances; Z88.6 Allergy status to analgesic agent; Z95.0 Presence of cardiac pacemaker
CPT/HCPCS: 36415; 70450; 70450-26; 71045; 71045-26; 80048; 80053; 80305; 81001; 83605; 83735; 84484; 85025; 86140; 87040; 96361; 96365; 96372; 99285-25; A9270-GY; G0378; J0696; J1650; J7050; J7120